=== PATIENT | male | born 1955 | race Caucasian/White ===

== ENCOUNTER 2019-12-08 06:17 | Day surgery (SDC) | payer BC ==
[2019-12-07 14:45] VITALS: BMI 25.3
[2019-12-08] MEDS ORDERED: PROPOFOL 20 ML ONE ×3 (06:53→08:59)
[2019-12-08] MEDS ORDERED: MIDAZOLAM HCL 2 MG/2 ML SINGLE DOSE VIAL ONE ×2 (06:54)
[2019-12-08] MEDS ORDERED: ERYTHROMYCIN 0.5% OPHTHALMIC OINTMENT 3.5 GM TUBE ONE (07:10)
[2019-12-08] MEDS ORDERED: TETRACAINE 0.5% OPHTH SOLN 2 ML BOTTLE ONE (07:10)
[2019-12-08] MEDS ORDERED: BUPIVACAINE HCL/PF 0.5% (5MG/ML) 10 ML VIAL ONE (07:10)
[2019-12-08] MEDS ORDERED: LIDOCAINE 1%/EPI 1:100000 (20 ML MULTI DOSE VIAL) ONE (07:11)
[2019-12-08] MEDS ORDERED: POVIDONE-IODINE 5% OPHTHALMIC PREP 30 ML SOLUTION ONE (07:21)
[2019-12-08] MEDS ORDERED: ceFAZolin SODIUM 1 GM VIAL ONE (08:18)
[2019-12-08] MEDS ORDERED: DEXAMETHASONE SOD PHOSPHATE 4 MG/1 ML VIAL ONE (08:40)
[2019-12-08] MEDS ORDERED: ONDANSETRON 4 MG/2 ML VIAL ONE (08:40)
[2019-12-08] MEDS ORDERED: ONDANSETRON 4 MG/2 ML VIAL IVPUSH PRN (09:33)
[2019-12-08] MEDS ORDERED: LACTATED RINGERS SOLUTION 1,000 ML IV SCH (09:45)
--- NOTE | 2019-12-08 09:58 | OP ---
DATE OF OPERATION: 12/08/2019 PREOPERATIVE DIAGNOSIS: Basal cell carcinoma, right lower lid. POSTOPERATIVE DIAGNOSIS: Basal cell carcinoma, right lower lid. PROCEDURE: 1. Debridement, tailoring and refiguring lower lid. 2. Lateral canthal myocutaneous flap from right lateral canthus to right lower lid. 3. Right lateral canthoplasty. SURGEON: Yana Jones MD ANESTHESIA: Local with sedation. COMPLICATIONS: None. ESTIMATED BLOOD LOSS: 2-3 mL. OPERATIVE REPORT: Patient brought to the operating room, placed on the operating room table. Vital signs monitored by Anesthesia. Tetracaine was placed in both eyes. Wound was photographed. Timeout was performed and then after intravenous sedation a 50:50 mixture of 2% xylocaine with 1:100,000 epinephrine and 0.5% Marcaine was injected subcutaneously in the right lower lid, right lateral canthus down to periosteum and semicircular flap was outlined superiorly from the lateral canthus and this position injected as well for a total of 4 mL. Patient was prepped and draped in the usual fashion, exposing both eyes. The left eye was manually closed. The wound was then regularized with Stephanie scissors and debrided, creating a nice rectangular defect. The lateral canthal flap was incised in a curvilinear fashion superiorly extending from the lateral canthus upward toward the brow and then Stephanie scissors were used to carry this incision through the muscle layer. Undermining with a Christianson scissors was performed, elevating the flap at the lateral canthus, and then the inferior laura of the lateral canthal tendon was widely released from the orbital rim allowing rotation of the lateral remnants of the eyelid nasally to meet the nasal portion of the eyelid. The margin was repaired with 3 interrupted 6-0 silk sutures, 1 through the anterior lash line, 1 through the posterior mucocutaneous junction and a mattress far-far/near-near suture through the ann line creating a central pucker. These were tied, clipped in a hemostat. The tarsus was anastomosed with two or three 6-0 Vicryl sutures and the muscle layer was closed with 6-0 Vicryl and the skin was closed with a running 6-0 plain suture removing a standing cutaneous deformity inferiorly. The margin sutures were flipped inferonasally and secured with a single 6-0 silk suture to keep them away from the cornea. The horizontal palpebral fissure was measured on the contralateral side to be 31 mm. Therefore, a similar width was made on the right side and the new canthus was marked and the canthus was reconstructed with a 5-0 chromic buried at the ann line of the upper lid and the advanced skin muscle flap to the lower lid. The lateral flap was then secured to the periosteum lateral to the orbital rim, elevating it slightly to take the tension off the lower eyelid with a 6-0 Vicryl suture. The muscle layer was closed with 6-0 Vicryl and the skin was closed with interrupted and running 6-0 plain suture with plastic technique, recreating the lateral canthus by excising skin, tailoring it to be an almond-shaped canthus and suturing skin in that position. Antibiotic irrigation was used throughout the case. Minimal cautery was necessary and erythromycin ointment was placed in the eye and on the sutures of both the lower lid and the lateral canthus and the patient was taken to the recovery room in stable condition. YANA JONES M.D. [id number]
[2019-12-08 10:32] VITALS: TEMP 97.6
[2019-12-08 10:36] VITALS: BP 121/68; PULSE 58
== END 2019-12-08 11:00 | disposition home or self-care (01) ==
LOC: FASU 06:17
PROVIDERS: ATTEND Ophthalmology
PROC: 0KX10ZZ Transfer Facial Muscle, Open Approach (ICD-10-PCS; 2019-12-08)
PROC: 08BQ0ZZ Excision of Right Lower Eyelid, Open Approach (ICD-10-PCS; principal; 2019-12-08 08:24)
DX: C44.1022 Unspecified malignant neoplasm of skin of right lower eyelid, including canthus (principal)
CPT/HCPCS: 94760